=== PATIENT | male | born 1975 ===

== ENCOUNTER → 2018-02-01 | Emergency (ER) | payer OTHER ==
[~2018-02-01] VITALS: Ht 180.3 cm; Wt 108.9 kg
[~2018-02-01] MED LIST: KETO10TA2 PO; NAPHCON15 ML OP; NORFLEX100MG PO; ZYRTEC10 MG PO
== END | disposition home or self-care (01) ==
LOC: ER 09:16
DX: M25.512 Pain in left shoulder (principal)